=== PATIENT | female | born 1945 | race Two or more races ===

== ENCOUNTER 2021-04-02 09:04 | Emergency (ER) | payer MEDICARE, OTHER ==
[~2021-04-02] VITALS: Ht 177.8 cm; Wt 81.6 kg
[2021-04-02] MEDS ORDERED: SODIUM BICARBONATE 8.4% INJ 50ML SYRINGE IV ONE (09:05)
[2021-04-02] MEDS ORDERED: EPINEPHrine HCL 1 MG/10 ML SYRG IV ONE (09:05)
[2021-04-02 09:15] VITALS: BP 88/60
[2021-04-02] MEDS ORDERED: NOREPINEPHRINE 8 MG/250ML KIT 250 ML IV ONE (09:23)
[2021-04-02] MEDS: EPINEPHrine HCL 250 ML IV ONE ×2 (09:27→09:58)
[2021-04-02] MEDS: NOREPINEPHRINE 8 MG/250ML KIT 250 ML IV SCH ×2 (09:27→16:29)
[2021-04-02] MEDS ORDERED: SODIUM BICARBONATE 8.4% INJ 50ML SYRINGE ONE ×2 (09:36→09:44)
[2021-04-02 09:40] VITALS: BP 128/66
[2021-04-02] MEDS ORDERED: VASOPRESSIN 50 UNITS in D5W 5% 247.5 ML IV SCH (10:30)
[2021-04-02] MEDS ORDERED: SODIUM CHLORIDE 0.9% 1,000 ML IV ONE (10:30)
[2021-04-02] MEDS ORDERED: PHENYLEPHRINE IV 250 ML IV ONE (10:44)
[2021-04-02] MEDS: PHENYLEPHRINE IV 250 ML IV SCH (10:45)
[2021-04-02] MEDS ORDERED: VANCOMYCIN PER PHARMACY 0 MG IV SCH (10:45)
[2021-04-02] MEDS ORDERED: VANCOMYCIN 1GM/250ML 250 ML IV ONE (10:45)
[2021-04-02 10:47] LABS: Eosinophils # (auto) 0.3 10 ^3/uL (0-0.8); Hemoglobin 12.7 g/dL (12.2-16.2); Red Blood Cells 3.79 10^6/uL (4.0-5.20)
[2021-04-02 10:48] LABS: Basophils # (auto) 0.1 10 ^3/uL (0-0.2); Basophils % (auto) 0.6 % (0.0-2.0); Eosinophils % (auto) 2.2 % (0.0-7.0); Hematocrit 39.5 % (36.0-46.0); Lymphocytes # (auto) 2.3 10 ^3/uL (0.4-5.4); Lymphocytes % (auto) 16.8 % (10.0-50.0); Mean Corpuscular Hemoglobin 33.6 pg (28.0-32.0); Mean Corpuscular Hgb Conc. 32.2 g/dL (32.0-36.0); Mean Corpuscular Volume 104.3 fL (80.0-100.0); Monocytes # (auto) 0.4 10 ^3/uL (0-1.3); Neutrophils # (auto) 10.5 10 ^3/uL (1.6-8.6); Neutrophils % (auto) 77.4 % (37.0-80.0); Nucleated Red Blood Cells % 0.2 %; Red Cell Distribution Width 13.9 % (11.8-14.3); White Blood Cell 13.6 10^3/uL (4.4-10.8)
[2021-04-02] MEDS ORDERED: CEFEPIME 1 GM in SODIUM CHL 0.9% 50 ML IV ONE (11:00)
[2021-04-02 11:01] LABS: INR 1.35 (0.9-1.15); Partial Thromboplastin Time 38.2 sec (23.6-33.0)
[2021-04-02 11:13] LABS: Albumin 2.8 g/dL (3.4-5.0); Potassium 3.5 mmol/L (3.5-5.1)
[2021-04-02 11:19] LABS: BUN/Creatinine Ratio 6.9; Bilirubin, Total 0.5 mg/dL (0.2-1.0); Total Protein 5.5 g/dL (6.4-8.2)
[2021-04-02 11:22] VITALS: BP 126/54
[2021-04-02] MEDS ORDERED: PHENYLEPHRINE IV 250 ML IV SCH (11:30)
[2021-04-02] MEDS ORDERED: SODIUM BICARBONATE 50ML VIAL 150 ML in D5W 5% 1,000 ML IV ONE (12:00)
[2021-04-02] MEDS ORDERED: SODIUM BICARBONATE 8.4 % INJ 50ML VIAL IV ONE (12:00)
[2021-04-02 14:47] VITALS: BP 141/67
[2021-04-02] MEDS ORDERED: ONDANSETRON HCL 4 MG/2 ML VIAL IV PRN (16:30)
[2021-04-02] MEDS ORDERED: LORazepam 2MG/ML-1ML VIAL IV PRN (16:30)
[2021-04-02] MEDS ORDERED: MORPHINE SULFATE INJECTION 2 MG/ML SYRG IV PRN (16:30)
[2021-04-02 16:50] VITALS: BP 134/84
[2021-04-03] MEDS ORDERED: VANCOMYCIN 1GM/250ML 250 ML IV SCH (06:00)
== END 2021-04-02 17:29 ==
LOC: EDBD 09:04 → ER 09:04
DX: I46.9 Cardiac arrest, cause unspecified (principal); J96.90 Respiratory failure, unspecified, unspecified whether with hypoxia or hypercapnia; R41.82 Altered mental status, unspecified; I95.9 Hypotension, unspecified; Z20.822 Contact with and (suspected) exposure to COVID-19
CPT/HCPCS: 31500; 36415; 36556; 36600; 70450; 71045; 71250; 74176; 80053; 82805; 83880; 84484; 85025; 85610; 85730; 87070; 87205; 87426; 92950; 93005; 96365; 96366; 96368; 96375; 99291; J0171; J0692; J2060; J2270; J2370; J2405; J3370; J7060; J7070; 94002